=== PATIENT | male | born 1950 | race African-American/Black ===

== ENCOUNTER 2016-07-19 09:56 | Inpatient (IN) ==
[2016-07-19] MEDS ORDERED: MYLANTA/LIDO VISC 2:1 300 ML BOTTLE SWISH/SPIT PRN (11:04)
[2016-07-19] MEDS ORDERED: LACTULOSE 20 GM/30 ML UDCUP PO PRN (11:04)
[2016-07-19] MEDS ORDERED: guaiFENesin 200 MG/10 ML UDCUP PO PRN (11:04)
[2016-07-19] MEDS ORDERED: ACETAMINOPHEN 325 MG TABLET PO PRN (11:04)
[2016-07-19] MEDS ORDERED: MYLANTA/LIDO VISC 2:1 300 ML BOTTLE SWISH/SWAL PRN (11:04)
[2016-07-19] MEDS ORDERED: ALPRAZolam 0.25 MG TABLET PO PRN (11:04)
[2016-07-19] MEDS ORDERED: LOPERAMIDE 2 MG CAPSULE PO PRN ×2 (11:04)
[2016-07-19] MEDS ORDERED: chlorproMAZINE INJ 25 MG in SODIUM CHLORIDE 0.9% 100 ML IV PRN (11:04)
[2016-07-19] MEDS ORDERED: ONDANSETRON 4 MG/2 ML VIAL IV PRN (11:04)
[2016-07-19] MEDS ORDERED: PROMETHAZINE INJ 25 MG in SODIUM CHLORIDE 0.9% 50 ML IV PRN (11:04)
[2016-07-19] MEDS ORDERED: ALUMINUM/MAGNES/SIMETH MAX STR 30 ML UDCUP PO PRN (11:04)
[2016-07-19] MEDS ORDERED: BENZTROPINE 2 MG/2 ML AMP IV PRN (11:04)
[2016-07-19] MEDS ORDERED: traMADol 50 MG TABLET PO PRN (11:04)
[2016-07-19] MEDS ORDERED: diphenhydrAMINE CAP 25 MG CAPSULE PO PRN (11:04)
[2016-07-19] MEDS ORDERED: TEMAZEPAM 7.5 MG CAPSULE PO PRN (11:04)
[2016-07-19] MEDS ORDERED: MAGNESIUM HYDROXIDE SUSP 30 ML UDCUP PO PRN (11:04)
[2016-07-19] MEDS ORDERED: chlorproMAZINE 25 MG TABLET PO PRN (11:04)
[2016-07-19] MEDS ORDERED: chlorproMAZINE INJ 50 MG in SODIUM CHLORIDE 0.9% 100 ML IV PRN (11:04)
[2016-07-19] MEDS ORDERED: HEPARIN LOCK FLUSH 500 UNIT/5 ML SYRINGE IV ONE ×2 (11:21→11:26)
--- NOTE | 2016-07-19 12:13 | CT Report ---
Exam: CT chest, abdomen and pelvis with contrast Date: 07/19/2016 Comparison: 04/07/2016, PET CT 2016 Reason: Colon cancer with abdominal swelling Technique: Axial images of the chest, abdomen and pelvis were obtained with the use of 100 cc of Omnipaque 350 IV contrast. Oral contrast was also administered. Sagittal and coronal reformatted images were provided. Total DLP is 2749.7 mGy*cm. Findings: The heart is minimally enlarged with persistent minimal dilatation of the thoracic aorta and the pulmonary arteries. No evidence of aortic dissection or obvious pulmonary emboli with arterial calcifications. Minimally larger right hilar node measuring 16 mm in length. Right subclavian venous access catheter. Progressive elevation of the right hemidiaphragm with right pleural effusion which measures 17 mm in depth at the level of the jenna compared to 15 mm. Progressive atelectasis/infiltration in the right middle lobe and right lower lobe. Numerous noncalcified pulmonary nodules are now identified in both lungs measuring 6 mm in length. The liver is larger in size with a lobulated contour and progressive multiple masses. The largest mass measures 217 mm compared to 176 mm at the same level of measurement. The gallbladder is contracted with no bile duct dilatation. The spleen, pancreas, and adrenal glands have an unremarkable are stable in appearance. Multiple renal cysts are noted with rotational anomaly of the right kidney. No renal or ureteral calculi are identified. Calcification of the wall of the nondilated abdominal aorta with no adjacent adenopathy. No significant dilatation of the small bowel. Residual mass in the area of the cecum on which measures 113 mm in diameter compared to 88 mm at the same level of measurement. Progressive moderate ascites with thickening of the mesentery and larger mesenteric nodes. Nonenlarged prostate with decompressed urinary bladder. Degenerative changes are noted. Progressive fluid in the soft tissues. Impression: Enlarging necrotic mass in the area of the cecum in patient with reported colon cancer. Progressive hepatic and latanya metastasis with interval development of pulmonary metastasis. Progressive atelectasis with increased relative elevation of the right hemidiaphragm. Progressive atelectasis/infiltration in the right middle lobe and right lower lobe. Progressive anasarca. Nonspecific contraction of the gallbladder with multiple renal cysts. The CT exam was performed using one or more of the following dose reduction techniques: Automated exposure control and adjustment of the mA and/or kV according to patient size. PROCEDURE INTERPRETED AT [facility] DEPARTMENT OF RADIOLOGY Final Report Signed by: Dr. Paty Cid
--- NOTE | 2016-07-19 12:31 | Ultrasound Report ---
Exam: US venous doppler LE BI Indication: Pain and swelling Date: 07/19/2016 9:59 AM Findings: Grayscale color flow duplex/Doppler imaging and spectral analysis waveform imaging was performed with real-time ultrasound with image stored and captured. The right common femoral,, popliteal saphenous veins are patent with normal augmentation and compression. There is no evidence of popliteal or Au's cyst. Normal wave form analysis present. Normal color flow chronic nonoccluding thrombus in the right superficial femoral vein The left common femoral,, popliteal saphenous veins are patent with normal augmentation and compression. There is no evidence of popliteal or Au's cyst. Normal wave form analysis present. Normal color flow. There is chronic nonoccluding thrombus in the left superficial femoral vein Impression: 1. No acute DVT 2. 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 Critical test report called to Nuria patient's nurse on 4 E. PROCEDURE INTERPRETED AT [facility] DEPARTMENT OF RADIOLOGY Final Report Signed by: Dr. Abelino Zepeda
--- NOTE | 2016-07-19 17:03 | Oncology History&Physical ---
Assessment and Plan - Time spent with patient Time spent with patient: Greater than 30 minutes (1) Metastatic colon cancer to liver Status: Acute Assessment and plan: I explained to Mr. Munson that his CT scan shows significant progression of disease. This bodes a very poor prognosis to have such rapid progression while on chemotherapy after just 3 or 4 months. I gave him the option of converting to a different type of chemotherapy or doing nothing and considering comfort measures only. I told him to consider this overnight and we will restart discuss tomorrow. I will place him on IV fluids since he is taking in very little p.o. intake. We cannot anticoagulate him due to his history of extensive GI bleeding with Xarelto just 2 months ago due to his primary tumor in the cecum. There is a very sad situation. Current Visit: No (2) DVT (deep venous thrombosis) Status: Acute Current Visit: Yes (3) Pulmonary embolism Status: Acute Current Visit: No (4) Lower gastrointestinal hemorrhage Status: Acute Current Visit: No (5) Hepatic encephalopathy Status: Acute Current Visit: No History of Present Illness History of present illness: Mr. Lepe is a 65 year old male metastatic colon cancer with liver involvement that we began treatment on approximately 3-4 months ago. Initially had significant hepatomegaly secondary to tumor involvement but this responded to chemotherapy. His tumor marker was decreasing fairly rapidly in clinic. A PET scan just 1 month ago showed residual activity only in the liver and the primary lesion of the colon. He has a history of pulmonary emboli but was not able to be anticoagulated due to GI bleeding from his primary tumor but he was placed on Xarelto for just for 5 days. He presented to clinic today for his next dose of chemotherapy but was complaining of weakness and difficulty with ambulation. He also has much worsened edema of his lower extremities and scrotum. I admitted him to the hospital for further workup and evaluation. His CT scan today showed significant progression of his liver lesions along with newly found pulmonary lesions. Ultrasound of the lower extremities showed extensive bilateral DVTs. Home Medications Medication Instructions Recorded Confirmed Type Morphine Ir Tab [Morphine IR Tab] 15 mg PO Q6HR PRN #40 tablet 03/10/16 Rx Furosemide Tab [Lasix Tab] 40 mg PO BID DIURETIC 04/06/16 07/19/16 History Potassium Chloride Cap/Tab [K Dur] 20 meq PO BID 04/06/16 07/19/16 History Albuterol Inhaler [Proventil 2 puff INH Q6H PRN #1 inhaler 04/10/16 07/19/16 Rx Inhaler] Metoprolol Tartrate 25 mg PO BID 04/13/16 07/19/16 History Levofloxacin Tab [Levaquin Tab] 500 mg PO Q24H #7 tablet 07/05/16 07/19/16 Rx Allergies Allergy/AdvReac Type Severity Reaction Status Date / Time No Known Allergies Allergy Verified 07/04/16 23:51 Medical,Surgical,& Family Hx - Medical History Cardio: History of: Cardiac Dysrhythmia, Hypertension Respiratory: History of: Pulmonary Embolism Gastrointestinal: History of: Gastrointestinal Bleed, Liver Problems, Gastrointestinal Cancer (colon cancer w/liver mets) Other: History of: Cancer (stage IV colon ca w/mets to liver) - Surgical History Abdominal Surgeries: Patient denies: Abdominal Surgery Reproductive Surgeries: Patient denies;: Genitourinary Surgery - Family History Family History: Reports;: Family Cancer (dad and brother), Family Diabetes ( brother), Family Hypertension (brother) - Social History Smoking Status: Never smoker 12 point system: reviewed and no additional remarkable complaints except as stated - Constitutional Constitutional: Present: fatigue, malaise, weakness. Absent: fever(s) - Gastrointestinal Gastrointestinal: Present: abdominal pain Exam - Constitutional Vitals: Period Temp Pulse Resp BP Sys/Trevino Pulse Ox Last 24 Hr 97.9 F-99.6 F 95 18-20 123-128/70-72 98-100 General appearance: normal weight, mild distress - Head Head Exam: Present: normocephalic, atraumatic - Eye Eye Exam: Present: EOMI Pupils: Present: PERRL - ENT ENT exam: Present: normal exam, normal oropharynx - Neck Neck exam: Absent: lymphadenopathy, thyromegaly - Respiratory Respiratory exam: Present: CTAB. Absent: wheezes - Cardiovascular Cardiovascular exam: Present: RRR. Absent: JVD - GI/Abdominal GI/Abdominal exam: Present: mass, soft. Absent: ascites, distended - Neurological Exam Neurological exam: Present: alert, oriented X3 - Psychiatric Psychiatric exam: Present: normal affect, normal mood - Skin Skin exam: Present: warm, dry
[2016-07-19] MEDS: SODIUM CHLORIDE 0.9% 1,000 ML IV SCH (17:44)
[2016-07-19] MEDS: MORPHINE IR 15 MG TABLET PO PRN (19:50)
[2016-07-19] MEDS: FUROSEMIDE 40 MG TABLET PO SCH (22:56)
[2016-07-19] MEDS: METOPROLOL TARTRATE 25 MG TABLET PO SCH (22:57)
[2016-07-20] MEDS: MORPHINE IR 15 MG TABLET PO PRN ×3 (03:23→18:05)
[2016-07-20] MEDS: SODIUM CHLORIDE 0.9% 1,000 ML IV SCH ×2 (06:53→20:25)
[2016-07-20 08:13] LABS: Basophils % 0.1 % (0.0-0.8); Eosinophils % 0.1 % (0.00-10.9); Hemoglobin 8.3 GM/DL (14.0-18.0); Immature Granulocytes % 0.7 %
--- NOTE | 2016-07-20 08:17 | Oncology Progress Note ---
Assessment and Plan (1) DVT (deep venous thrombosis) Status: Acute Current Visit: Yes (2) Pulmonary embolism Status: Acute Current Visit: No (3) Lower gastrointestinal hemorrhage Status: Acute Current Visit: No (4) Hepatic encephalopathy Status: Acute Current Visit: No (5) Colon cancer Status: Acute Current Visit: Yes Oncology Subjective PN Interval history: Mr. Munson CT scan yesterday showed dramatic worsening of disease just in the last 4 weeks. His severely debilitated at this point as having a difficult time even rising from bed. He has diffuse lower externally edema secondary to bilateral DVTs. We are unable to anticoagulate him due to his history of severe GI bleeding with a short course of Xarelto for pulmonary emboli just 2 months ago. I had a lengthy discussion today with with he, his , and his sister. I explained to them that the situation is very dismal that I am not sure that further chemotherapy would be of any benefit. Our only option will be to change his oxaliplatin to arena T can. I am more fearful that further chemotherapy would actually shorten his life since he has progressed right to FOLFOX after only 6 doses. I have held Avastin due to his history of GI bleeding and pulmonary emboli. I have offered him hospice. He is in no condition to go home at this time so we will take the next 2-3 days to figure out what they want to do. I have encouraged him to strongly consider hospice. Exam - Constitutional Vitals: Period Temp Pulse Resp BP Sys/Trevino Pulse Ox Last 24 Hr 97.9 F-99.6 F 95-106 18-20 120-135/69-84 95-100 General appearance: no acute distress, over weight - Head Head Exam: Present: normocephalic, atraumatic - Eye Eye Exam: Present: EOMI Pupils: Present: PERRL - ENT ENT exam: Present: normal exam, normal oropharynx - Neck Neck exam: Absent: lymphadenopathy, thyromegaly - Respiratory Respiratory exam: Present: CTAB. Absent: wheezes - Cardiovascular Cardiovascular exam: Present: tachycardia. Absent: irregular rhythm, JVD - GI/Abdominal GI/Abdominal exam: Present: distended, firm, mass. Absent: guarding, tenderness
[2016-07-20 08:19] LABS: INR 1.3; PT Patient Result 13.5 SECS
[2016-07-20 08:38] LABS: Hematocrit 29.1 VOL% (42.0-52.0); Immature Granulocytes Absolute 0.12 #; Lymphocytes # 1.2 10*3/uL (1.4-4.0); Lymphocytes % 7.1 % (21.2-54.2); Mean Corpuscular HGB Conc 28.5 GM/DL (32-36); Mean Corpuscular Hemoglobin 24 PG (27-34); Mean Corpuscular Volume 83.4 FL (87-102); Mean Platelet Volume 12.6 FL (9.6-12.0); Monocytes % 12.1 % (1.7-12.7); Neutrophils % 79.9 % (38.7-73.9); Platelet Count 364 T/CUMM (130-400); Red Blood Count 3.49 MC/CUMM (3.8-5.5); Red Cell Distribution Width 22.7 % (9.3-17.3); White Blood Count 16.3 T/CUMM (4-12)
[2016-07-20 08:40] LABS: Hypochromasia 1+; Microcytosis 1+
[2016-07-20 08:41] LABS: Platelet Estimate Normal
[2016-07-20 08:46] LABS: Albumin 1.4 G/DL (3.4-5.0); Bilirubin,Total 1.3 MG/DL (0.2-1.0); Calcium 8.3 MG/DL (8.5-10.1); Osmolality,Calculated 280.3 MOS/KG (273-304); Potassium 4.5 MMOL/L (3.5-5.1); Total Protein 5.2 G/DL (6.4-8.3)
[2016-07-20] MEDS: METOPROLOL TARTRATE 25 MG TABLET PO SCH ×2 (08:51→21:09)
[2016-07-20] MEDS: FUROSEMIDE 40 MG TABLET PO SCH (10:03)
[2016-07-21] MEDS: MORPHINE IR 15 MG TABLET PO PRN ×2 (04:47→18:05)
--- NOTE | 2016-07-21 09:41 | Oncology Progress Note ---
Assessment and Plan (1) DVT (deep venous thrombosis) Status: Acute Current Visit: Yes (2) Pulmonary embolism Status: Acute Current Visit: No (3) Lower gastrointestinal hemorrhage Status: Acute Current Visit: No (4) Hepatic encephalopathy Status: Acute Current Visit: No (5) Colon cancer Status: Acute Current Visit: Yes Oncology Subjective PN Interval history: Mr. Munson is a 65-year-old black male with metastatic colon cancer who I have been treating with first-line FOLFOX over the last 4 months. He has a very large liver mass that has caused severe hepatomegaly. He initially showed response but over the last few weeks has rapidly progressed. He presented to clinic this week severely weakened and unable to ambulate. I admitted to the hospital for workup. We found on CT scan that his disease has progressed very rapidly with his liver lesion growing by more than 50% and just 4 weeks along with newly found pulmonary metastases and enlarging abdominal lymph nodes. he also now has bilateral extensive DVTs we are unable to anticoagulate him due to a recent history of a severe GI bleed when he was placed on Xarelto in May. The Xarelto was begun at that time due to known left lung pulmonary emboli. We presume that he bled from his very large primary tumor in his cecum. I had lengthy discussions with Mr. Munson and his family about his prognosis and our future goals. We have all agreed that hospice is the next best approach. We will keep him in the hospital through the weekend and began working on home hospice next week. I do not anticipate him to survive more than a few weeks. Exam - Constitutional Vitals: Period Temp Pulse Resp BP Sys/Trevino Pulse Ox Last 24 Hr 96.8 F-99.5 F 89-109 18-21 107-158/66-83 96-100 General appearance: no acute distress, over weight - Head Head Exam: Present: normocephalic, atraumatic - Eye Eye Exam: Present: EOMI Pupils: Present: PERRL - ENT ENT exam: Present: normal exam, normal oropharynx - Neck Neck exam: Absent: lymphadenopathy, thyromegaly - Respiratory Respiratory exam: Present: CTAB. Absent: wheezes - GI/Abdominal GI/Abdominal exam: Present: distended, firm, mass, other (Severe hepatomegaly). Absent: ascites Results - Labs CBC & BMP: 07/20/16 07:50 07/20/16 07:50 Lab Results: I have reviewed the past 24 hour labs
[2016-07-21] MEDS: METOPROLOL TARTRATE 25 MG TABLET PO SCH ×2 (09:42→20:55)
[2016-07-21] MEDS: FUROSEMIDE 40 MG TABLET PO SCH (09:42)
[2016-07-21] MEDS: SODIUM CHLORIDE 0.9% 1,000 ML IV SCH (09:43)
[2016-07-21] MEDS: MORPHINE 2 MG/1 ML SYRINGE IV PRN (12:55)
[2016-07-22] MEDS: MORPHINE 2 MG/1 ML SYRINGE IV PRN ×2 (04:41→17:31)
[2016-07-22] MEDS: FUROSEMIDE 40 MG TABLET PO SCH (08:50)
[2016-07-22] MEDS: METOPROLOL TARTRATE 25 MG TABLET PO SCH ×2 (08:50→20:49)
[2016-07-22] MEDS: LACTULOSE 20 GM/30 ML UDCUP PO SCH (08:51)
[2016-07-22] MEDS: MORPHINE IR 15 MG TABLET PO PRN ×2 (09:17→15:52)
--- NOTE | 2016-07-22 11:13 | Oncology Progress Note ---
Oncology Subjective PN Interval history: Patient with metastatic adenocarcinoma of the colon now with progression of disease after first-line chemotherapy. He is asking for more pain medication. I am starting him on fentanyl because he is going to be evaluated for possible discharge on hospice. I am not stopping his parenteral morphine yet. He is critically ill with tight abdominal distention and with 3+ edema of the lower extremities. I am increasing his oral dose of Lasix and I am going to go ahead and give him 1 dose intravenously. His condition is extremely poor and he obviously knows it as does his family. Exam - Constitutional Vitals: Period Temp Pulse Resp BP Sys/Trevino Pulse Ox Last 24 Hr 97.7 F-98.6 F 91-108 16-21 119-126/71-81 90-97 Results - Labs CBC & BMP: 07/20/16 07:50 07/20/16 07:50
[2016-07-22] MEDS ORDERED: FUROSEMIDE 40 MG/4 ML VIAL IV ONE (13:24)
[2016-07-22] MEDS ORDERED: fentaNYL 25 MCG/HR PATCH TRANSDERM SCH (13:30)
[2016-07-23] MEDS: MORPHINE 2 MG/1 ML SYRINGE IV PRN ×3 (04:22→20:50)
[2016-07-23] MEDS: MORPHINE IR 15 MG TABLET PO PRN (08:03)
[2016-07-23] MEDS: FUROSEMIDE 40 MG TABLET PO SCH (08:55)
[2016-07-23] MEDS: METOPROLOL TARTRATE 25 MG TABLET PO SCH ×2 (08:55→20:50)
[2016-07-23] MEDS: LACTULOSE 20 GM/30 ML UDCUP PO SCH (08:58)
--- NOTE | 2016-07-23 10:26 | Oncology Progress Note ---
Oncology Subjective PN Interval history: Mr. Lepe is an unfortunate man with advanced metastatic adenocarcinoma the colon who has massive abdominal ascites and distention as well as peripheral edema. He is on comfort measures only and plans are being made for him to go home on hospice. I added a fentanyl patch yesterday. The family member present in his room does not think that is pain is better but he was sleeping when I made rounds and I am hoping that the fentanyl has helped. It will be something that he can use at discharge that is not given intravenously or by other injection although it is a parenteral narcotic. In addition, his pedal edema appears modestly better today with a slight increase in his diuretics. Currently his respirations are somewhat rapid but unlabored. Breath sounds are relatively normal and sore his heart sounds but I did not awaken him to do further examination. His abdomen remains protuberant and somewhat tense. Exam - Constitutional Vitals: Period Temp Pulse Resp BP Sys/Trevino Pulse Ox Last 24 Hr 98.7 F-99.9 F 104-132 15-20 117-136/78-84 93-97 Results - Labs CBC & BMP: 07/20/16 07:50 07/20/16 07:50
[2016-07-24] MEDS: MORPHINE 2 MG/1 ML SYRINGE IV PRN ×3 (01:02→11:12)
--- NOTE | 2016-07-24 07:25 | Discharge Summary ---
Hospital Course - Hospital Course Hospital Course: Ms. Lepe is a 65-year-old black male with metastatic colon cancer who has progressed through first-line chemotherapy. He has severe hepatomegaly causing significant abdominal distention. He is admitted with failure to thrive [address] scans confirmed significant progression in the liver and with new pulmonary metastases. The family and I both agreed to do no further treatment and pursue hospice care only. Patient would like to be at home so we will discharge him home today with hospice care. I will write him a prescription for fentanyl 25 mcg in topical patch form. I will also go ahead and write him concentrated morphine is anticipated that he will deteriorate fairly rapidly and not be able to tolerate pills in the near future. He is already not taking in very much p.o. intake. His prognosis is very poor and I do not anticipate him to survive more than 1-2 weeks. He has known DVTs of his lower extremities but we are not anticoagulating this due to his high risk for GI bleed from his large colon mass. He was previously on Xarelto 2 months ago for known pulmonary emboli and had severe GI bleeding while on anticoagulant. He has bilateral lower extremity edema secondary to his DVTs. He has been managed with aggressive Lasix therapy here in the hospital but we will use a low dose at home since I do not anticipate him taking in much by mouth and I fear he will get severely dehydrated. I would have a very low threshold to discontinue Lasix if patient begins to look dehydrated. Diagnosis - Discharge Diagnosis (1) DVT (deep venous thrombosis) Status: Acute (2) Pulmonary embolism Status: Acute (3) Lower gastrointestinal hemorrhage Status: Acute (4) Hepatic encephalopathy Status: Acute (5) Colon cancer Status: Acute Discharge Plan - Discharge Data Disposition: Hospice - Home Condition at Discharge: Guarded - Discharge Medications New fentaNYL 25 MCG/HR PATCH [Duragesic 25 Patch] 1 patch TRANSDERM Q3DAY #10 patch Furosemide 20 mg PO DAILY #30 tablet Morphine Ir Tab [Morphine IR Tab] 15 mg PO Q6HR PRN #60 tablet PRN Reason: Pain Morphine Sulfate [Roxanol] 5 mg SL Q4H PRN #30 ml PRN Reason: Pain Discontinued Morphine Ir Tab [Morphine IR Tab] 15 mg PO Q6HR PRN #40 tablet PRN Reason: Pain No Action Furosemide Tab [Lasix Tab] 40 mg PO BID DIURETIC Albuterol Inhaler [Proventil Inhaler] 2 puff INH Q6H PRN #1 inhaler PRN Reason: Shortness Of Breath/Wheezing Levofloxacin Tab [Levaquin Tab] 500 mg PO Q24H #7 tablet Potassium Chloride Cap/Tab [K Dur] 20 meq PO BID Metoprolol Tartrate 25 mg PO BID - Follow Up or Referral - Forms/Instructions Exam - Constitutional Vitals: Period Temp Pulse Resp BP Sys/Trevino Pulse Ox Last 24 Hr 98.7 F-100.8 F 97-132 17-20 115-149/62-84 92-99 DS: Provider Date of admission: 07/19/16 10:24 Primary care physician: . No PCP Attending physician on admission: Vinicius De La Paz MD Consults: 07/19/16 14:10 Consult to Dietitian [CONS] Routine Reason for Dietitian: Diet Instruction 07/21/16 10:20 Consult to Case Mgmt/Social Srvs [CONS] Routine Reason for Case Mgmt/Social Srvs: Hospice Referral Discharging clinician: Vinicius De La Paz MD
[2016-07-24] MEDS: FUROSEMIDE 40 MG TABLET PO SCH (09:48)
[2016-07-24] MEDS: METOPROLOL TARTRATE 25 MG TABLET PO SCH (09:48)
[2016-07-24] MEDS: LACTULOSE 20 GM/30 ML UDCUP PO SCH (09:48)
[2016-07-24 10:25] VITALS: BP 112/62
[2016-07-24] MEDS ORDERED: HEPARIN LOCK FLUSH 500 UNIT/5 ML SYRINGE IV ONE ×2 (11:10→11:11)
== END 2016-07-24 12:05 | disposition hospice, home (50) | DRG 375 ==
LOC: N.4E 10:24
PROVIDERS: ADMIT Specialist; ATTEND Specialist